=== PATIENT | female | born 1965 | race Asian ===

== ENCOUNTER 2022-10-19 11:22 | Emergency (ER) | payer MEDICAID ==
[~2022-10-19] VITALS: Ht 165.1 cm; Wt 79.8 kg
[2022-10-19 11:26] VITALS: BP 146/90; PULSE 77; RESP 17; TEMP 97.4; O2SAT 98
[2022-10-19 12:51] LABS: BASOPHILS % (AUTO) 0.3 % (0.0-2.0); EOSINOPHILS % (AUTO) 0.1 % (0.0-4.0); HEMATOCRIT 36.2 % (36-48); HEMOGLOBIN 12.1 g/dL (12.0-16.0); LYMPHOCYTES # (AUTO) 1.1 K/uL (2.5-16.5); LYMPHOCYTES % (AUTO) 10.6 % (20.5-51.1); MEAN CORPUSCULAR HEMOGLOBIN 28 pg (27-31); MEAN CORPUSCULAR HGB CONC 34 g/dL (33-37); MEAN CORPUSCULAR VOLUME 84.2 fL (80-94); MONOCYTES # (AUTO) 1.3 K/uL (0.8-1.0); MONOCYTES % (AUTO) 12.2 % (1.7-9.3); NEUTROPHILS # (AUTO) 8.1 K/uL (1.8-7.7); NEUTROPHILS % (AUTO) 76.8 % (42.2-75.2); PLATELET COUNT (AUTO) 245 K/uL (140-450); RED CELL DISTRIBUTION WIDTH 15.3 % (11.6-13.7); WHITE BLOOD COUNT (AUTO) 10.6 K/uL (4.8-10.8)
[2022-10-19 13:30] LABS: ALBUMIN 3.7 g/dL (3.4-5.0); ANION GAP 12.1 (8-16); CALCIUM 9.3 mg/dL (8.5-10.1); CARBON DIOXIDE 26.9 mmol/L (21-32); CREATININE 0.6 mg/dL (0.6-1.3); TOTAL BILIRUBIN 0.9 mg/dL (0.0-1.0); TOTAL PROTEIN, SERUM 8.6 g/dL (6.4-8.2)
[2022-10-19 13:51] LABS: APPEARANCE,URINE CLEAR (CLEAR); BILIRUBIN,URINE 1+ (NEGATIVE); BLOOD, URINE 1+ (NEGATIVE); COLOR,URINE YELLOW (YELLOW); LEUKOCYTE ESTERASE ,URINE NEGATIVE (NEGATIVE); NITRITE, URINE NEGATIVE (NEGATIVE); PH,URINE 5.5 (5.0-9.0); PROTEIN,URINE 1+ (NEGATIVE); UGLUCOSE NEGATIVE (NEGATIVE)
[2022-10-19 14:16] LABS: BACTERIA,URINE 0-2 /HPF (None Seen); ICTOTEST NEGATIVE (NEGATIVE); RBC,URINE 0-5 /HPF (0-5); SQUAMOUS EPITHELIAL CELL,UR 0-3 (FEW) /LPF (0-3 (FEW)); WBC,URINE 0-5 /HPF (0-5)
[2022-10-19] MEDS ORDERED: NACL 0.9% 1,000 ML IV ONE (14:35)
[2022-10-19 15:40] VITALS: O2SAT 98
[2022-10-19 17:02] VITALS: TEMP 98.2
[2022-10-19 21:41] VITALS: O2SAT 100
[2022-10-19 23:42] VITALS: BP 107/57; PULSE 103; RESP 19; O2SAT 98
== END 2022-10-19 23:52 | disposition short-term general hospital (02) ==
LOC: MED 11:22
DX: R55 Syncope and collapse (principal); Z20.822 Contact with and (suspected) exposure to COVID-19; Z85.3 Personal history of malignant neoplasm of breast; Z79.899 Other long term (current) drug therapy
CPT/HCPCS: 36415; 71045; 71275; 80053; 81001; 83880; 84484; 85025; 85379; 87426; 93005; 96360; 99285; J7030; Q9967